=== PATIENT | female | born 1935 | race Two or more races ===

== ENCOUNTER 2022-01-29 15:25 | Emergency (ER) | payer OTHER ==
[~2022-01-29] VITALS: Ht 157.5 cm; Wt 77.1 kg
[2022-01-29] MEDS ORDERED: COZAAR100 MG PO (15:35)
== END 2022-01-29 21:39 | disposition home or self-care (01) ==
LOC: ER 15:25
DX: M54.89 Other dorsalgia (principal); Z88.6 Allergy status to analgesic agent; Z91.041 Radiographic dye allergy status

== ENCOUNTER 2022-02-12 10:39 | Outpatient (CLI) | payer OTHER ==
[~2022-02-12 10:39] MED LIST: COZAAR100 MG PO
== END 2022-02-12 10:40 | disposition home or self-care (01) ==
LOC: TOM 10:39
PROVIDERS: ATTEND Physical Medicine & Rehabilitation
DX: M54.50 Low back pain, unspecified (principal); M54.16 Radiculopathy, lumbar region; W19.XXXA Unspecified fall, initial encounter
CPT/HCPCS: 72148